=== PATIENT | female | born 1995 | race Caucasian/White ===

== ENCOUNTER 2021-03-05 10:12 | Emergency (ER) | payer OTHER, SELFPAY ==
[2021-03-05 10:59] VITALS: BP 134/102; PULSE 102; RESP 16; TEMP 36.7; O2SAT 99
--- NOTE | 2021-03-05 11:54 | ED.SKABFB ---
HPI - Skin/Abscess/Foreign Bdy General Chief complaint: Skin/Abscess/Foreign Body Stated complaint: lump under left breast Time Seen by Provider: 03/05/21 11:50 Source: patient Mode of arrival: ambulatory Limitations: no limitations History of Present Illness HPI narrative: Nhi Ely Is a 26-year-old female with no PMH except for recurrent abscesses under her breasts and on her legs who comes with a small abscess under her left breast her breasts are massive and she is had recurrent problems with skin irritation and skin breakdown Related Data Allergies Allergy/AdvReac Type Severity Reaction Status Date / Time No Known Allergies Allergy Verified 03/05/21 11:20 Review of Systems Review of Systems: CONSTITUTIONAL: Denies fever, chills, sweats. EYES: Denies visual changes, redness, discharge. ENT: Denies rhinorrhea, congestion, sore throat, otalgia. CARDIOVASCULAR: Denies chest pain, palpitations, edema. RESPIRATORY: Denies dyspnea, wheezing, cough GASTROINTESTINAL: Denies abdominal pain, nausea, vomiting, diarrhea. GENITOURINARY: Denies dysuria, hematuria, abnormal discharge SKIN: Denies rash or itching. Abscess under left breast NEUROLOGIC: Denies numbness, or focal weakness. PSYCHIATRIC: Denies anxiety or depression. PMFSH Past Medical History Medical History Skin abscess Family History Family History Other No acute medical problems Social History Social History (Updated 03/05/21 @ 12:10 by Griselda Whitfield CNP) Smoking status: Never smoker Alcohol intake: current Comments At time of signature, I agree with nursing past medical, surgical, social and family history. There is no relevant family history pertinent to the presenting complaint. Patient's blood pressure is elevated due to pain from current issue does not have a history of hypertension referred to follow-up with primary care Exam Narrative: GENERAL: This is a well-nourished, well-developed patient, in mild distress. HEAD: normocephalic, atraumatic. EYES: Sclera clear/white. Vision is grossly intact. EARS: External ears normal, . Hearing grossly intact. NOSE: External nose normal without nasal discharge, nares without redness, no rhinorrhea. THROAT: Mucous membranes moist, NECK: Neck supple, non-tender CARDIOVASCULAR: Regular rate and rhythm without murmurs, gallops, or rubs. RESPIRATORY: Clear to auscultation. Breath sounds equal bilaterally. No wheezes, rales, or rhonchi. GASTROINTESTINAL: Abdomen soft, , SKIN: warm, intact with no suspicious lesions or rash, good texture and turgor. Abscess under left breast that measures about 2 cm but is very tender and firm NEURO: awake, alert, and oriented to person, place and time. There were no obvious focal neurologic abnormalities. Steady gait EXTREMITIES: Normal range of motion. BACK: Nontender without deformity Course Course Emergency Course: Needle I&D of abscess in her left breast that drained started on Bactrim and clock Keflex Vital Signs Vital signs: Vital Signs Temperature 98.1 F 03/05/21 10:59 Pulse Rate 102 H 03/05/21 10:59 Respiratory Rate 16 03/05/21 10:59 Blood Pressure 134/102 H 03/05/21 10:59 Pulse Oximetry 99 03/05/21 10:59 Temperature 98.1 F 03/05/21 10:59 Pulse Rate 102 H 03/05/21 10:59 Respiratory Rate 16 03/05/21 10:59 Blood Pressure 134/102 H 03/05/21 10:59 Pulse Oximetry 99 03/05/21 10:59 Procedures Abscess I/D abdomen: Date of Incision: 03/05/21 Time of Incision: 11:55 Side (if applicable): left Technique: needle aspiration Amount of fluid expressed (mL): 10 Irrigation: Yes Packing used?: none I&D Results: Pus and Blood Complications: pain Abcess I&D Additional Comments: Patient tolerated well MDM - Skin/Abscess/Foreign Bdy Differential Diagn
== END 2021-03-05 12:25 | disposition home or self-care (01) ==
PROVIDERS: Emergency Provider Nurse Practitioner
DX: L02.213 Cutaneous abscess of chest wall (principal)
CPT/HCPCS: 10160; 99203; G0463